=== PATIENT | male | born 1985 ===

== ENCOUNTER 2024-08-11 19:29 | Emergency (ER) | payer SELFPAY ==
[2024-08-11 19:34] VITALS: BP 135/72; PULSE 81; RESP 15; TEMP 36.6; O2SAT 100
--- NOTE | 2024-08-12 01:59 | PC.NURSE ---
Pt was called to go back to a room and did not show up.
== END 2024-08-12 02:35 | disposition left against medical advice (07) ==
LOC: ANHED 08-12 02:23
DX: K40.90 Unilateral inguinal hernia, without obstruction or gangrene, not specified as recurrent (principal)
CPT/HCPCS: 99199